=== PATIENT | male | born 1970 | race African-American/Black ===

== ENCOUNTER 2018-12-04 17:52 | Emergency (ER) | payer MEDICAID, OTHER ==
[2018-12-04] MEDS ORDERED: oxyCODONE/Acetamin 5/325 MG* TAB PO ONE (20:24)
--- NOTE | 2018-12-04 20:38 | ED ---
Skin Complaint - HPI Summary HPI Summary: 48-year-old male presents with abscess to his right buttock for the past week. He denies any drainage. He states that he has had this before. Denies any known history of MRSA. He is not diabetic. He is currently homeless. He has not follow-up with his doctor in some time. Denies any fevers or chills. He states that he lymph nodes are swollen his inguinal region. - History of Current Complaint Chief Complaint: EDRashSkinAbscess Time Seen by Provider: 12/04/18 20:17 Stated Complaint: WOUND ON HIP Pain Intensity: 10 - Allergy/Home Medications Allergies/Adverse Reactions: Allergies Allergy/AdvReac Type Severity Reaction Status Date / Time No Known Allergies Allergy Verified 12/04/18 18:04 PMH/Surg Hx/FS Hx/Imm Hx Endocrine/Hematology History: Denies: Hx Anticoagulant Therapy Cardiovascular History: Denies: Hx Myocardial Infarction Infectious Disease History: No Infectious Disease History: Denies: Traveled Outside the [place] in Last 30 Days - Family History Known Family History: Positive: Non-Contributory - Social History Alcohol Use: Weekly Substance Use Type: Reports: None Smoking Status (MU): Never Smoked Tobacco Review of Systems Negative: Fever Negative: Chest Pain Negative: Shortness Of Breath Positive: Rash All Other Systems Reviewed And Are Negative: Yes Physical Exam Triage Information Reviewed: Yes Vital Signs On Initial Exam: Initial Vitals Temp Pulse Resp BP Pulse Ox 99.4 F 93 16 137/89 97 12/04/18 17:58 12/04/18 17:58 12/04/18 17:58 12/04/18 17:58 12/04/18 17:58 Completion Of Physical Exam Limited Due To: Dementia Appearance: Positive: Well-Appearing Skin: Positive: Dry, Other - 5cm by 4cm abscess on right buttock Head/Face: Positive: Normal Head/Face Inspection Eyes: Positive: Normal, Conjunctiva Clear ENT: Positive: Pharynx normal Respiratory/Lung Sounds: Positive: Clear to Auscultation, Breath Sounds Present Cardiovascular: Positive: Normal, RRR Musculoskeletal: Positive: Other - right inguinal lymphadenopathy Neurological: Positive: Normal Psychiatric: Positive: Normal Procedures - Incision and Drainage right buttock Site: right buttock Anesthesia: Topical Instrument(s): Scalpel Packing: Gauze Diagnostics - Vital Signs Vital Signs Temp Pulse Resp BP Pulse Ox 12/04/18 20:28 16 12/04/18 17:58 99.4 F 93 16 137/89 97 - Laboratory Lab Statement: Any lab studies that have been ordered have been reviewed, and results considered in the medical decision making process. Course/Dx - Course Course Of Treatment: 48-year-old male presents with abscess to his right buttock for the past week. He denies any drainage. He states that he has had this before. Denies any known history of MRSA. He is not diabetic. He is currently homeless. He has not follow-up with his doctor in some time. Denies any fevers or chills. He states that he lymph nodes are swollen his inguinal region. On exam has 5cm by 4 cm abscess of right buttocks. Performed I&D got copious amount of discharge. Sent for wound culture but culture swab was so lab threw the culture out after the patient left. Placed patient on Bactrim. Told to return for packing change in 2 days. Told to [facility]up [facility] as does not currently have a doctor. Patient understands agrees with plan. - Differential Diagnoses - Skin Complaint Differential Diagnoses: Abscess, Cellulitis, Contact Dermatitis - Diagnoses Provider Diagnoses: Abscess of right buttock Discharge - Sign-Out/Discharge Documenting (check all that apply): Patient Departure Patient Received Moderate/Deep Sedation with Procedure: No - Discharge Plan Condition: Good Disposition: HOME Prescriptions: Ibuprofen TAB* [Motrin TAB* 800 MG] 800 mg PO Q6H #16 tab Sulfamethox/Trimethoprim DS* [Bactrim DS 800/160 TAB*] 1 tab PO BID #19 tab Patient Education Materials: Abscess (ED) Referrals: [facility] [Outside] Additional Instructions: Take antibiotic twice a day for 10 days, first dose given in ED Apply warm compresses to area Take ibuprofen or Tylenol for pain every 6 hours Follow up with [facility] within 3 days Return to ED if develop fever, area of redness spreads, or any new or worsening symptoms - Billing Disposition and Condition Condition: GOOD Disposition: Home
[2018-12-04] MEDS ORDERED: Sulfamethox/Trimethoprim DS 800/160* TAB PO ONE (20:57)
[2018-12-04] MEDS ORDERED: Ibuprofen TAB* 800 MG PO ONE (20:57)
[2018-12-04 21:13] VITALS: BP 149/91
== END 2018-12-04 21:12 | disposition home or self-care (01) ==
LOC: ED 17:52
DX: L02.31 Cutaneous abscess of buttock (principal)
CPT/HCPCS: 10060; 99283; A9270-GY

== ENCOUNTER → 2019-06-16 | Emergency (ER) | payer MEDICAID, OTHER ==
[~2019-06-16] MED LIST: Tetan/Diph/Pertus SYR(Tdap)* 0.5 ML SYR(BOOSTRIX) use SYR IM ONE
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
[2019-06-16 20:46] VITALS: BP 121/60
== END | disposition home or self-care (01) ==
LOC: ED 18:28
DX: S01.81XA Laceration without foreign body of other part of head, initial encounter (principal); S01.512A Laceration without foreign body of oral cavity, initial encounter; Z72.89 Other problems related to lifestyle; F14.90 Cocaine use, unspecified, uncomplicated; Z23 Encounter for immunization; Y04.2XXA Assault by strike against or bumped into by another person, initial encounter; Y92.9 Unspecified place or not applicable
CPT/HCPCS: 70450; 90471; 90715; 99282

== ENCOUNTER 2022-04-04 10:03 | Observation (INO) ==
[2022-04-04] MEDS ORDERED: NS 0.9% 1000 ml BAG 1,000 ML IV ONE (10:25)
[2022-04-04 10:36] LABS: ABS Eosinophils 0.2 10^3/ul (0-0.6); ABS Lymphocytes 1.6 10^3/ul (1.0-4.8); ABS Monocytes 0.6 10^3/ul (0-0.8); ABS Neutrophils 3.4 10^3/ul (1.5-7.7); Eosinophil % 3.4 %; Hematocrit 42 % (42-52); Hemoglobin 14.2 g/dL (14.0-18.0); Lymphocyte % 27.7 %; Mean Corpuscular HGB Conc 34 g/dL (31-36); Mean Corpuscular Hemoglobin 32 pg (27-31); Mean Corpuscular Volume 95 fL (80-94); Mean Platelet Volume 7.9 fL (7.4-10.4); Nucleated Red Blood Cells % 0.1; Platelet Count 286 10^3/uL (150-450); Red Blood Count 4.46 10^6 /uL (4.18-5.48); Red Cell Distribution Width 14 % (10-15); White Blood Count 5.7 10^3/uL (3.5-10.8)
[2022-04-04] MEDS ORDERED: Iohexol 350 (CONTRAST) 500 ML MDV IV ONE (10:40)
[2022-04-04 10:48] LABS: Activated Partial Thrombo Time 25.6 seconds (26.0-38.0); INR 0.93 (0.86-1.15)
[2022-04-04 11:21] LABS: Albumin 4.4 g/dL (3.2-5.2); Albumin/Globulin Ratio 1.5 (1-3); HDL Cholesterol 105.8 mg/dL; Potassium 3.9 mmol/L (3.5-5.0); Total Bilirubin 0.5 mg/dL (0.2-1.0); Total Protein 7.4 g/dL (6.4-8.9); eGFR CKD-EPI 80.9 (>60)
[2022-04-04 12:02] LABS: High Sensitivity Troponin 1 Hr 14 pg/mL (<20)
[2022-04-04] MEDS ORDERED: Lorazepam PYXIS KEY PRN (12:09)
[2022-04-04] MEDS ORDERED: LORazepam 2 mg VIAL 1 ml IV PUSH ONE (12:09)
[2022-04-04] MEDS ORDERED: Thiamine 100 MG/ML 2 ml VIAL (200 mg) IM ONE (13:31)
[2022-04-04] MEDS ORDERED: Thiamine 100 MG/ML 2 ml VIAL 100 MG, Folic Acid IV 1 MG, Multiple Vitamin IV ADULT 10 M... IV ONE (13:34)
[2022-04-04] MEDS ORDERED: LORazepam 2 mg VIAL 1 ml IV PUSH SCH (14:00)
[2022-04-04] MEDS ORDERED: NS 0.9% 1000 ml BAG 1,000 ML ONE (15:44)
[2022-04-04] MEDS ORDERED: Thiamine 100 MG/ML 2 ml VIAL (200 mg) ONE (15:44)
[2022-04-05] MEDS ORDERED: Multivitamins/Minerals TAB PO SCH (09:00)
[2022-04-05] MEDS ORDERED: Aspirin EC 81 mg TAB.EC (enteric coated) PO SCH (09:00)
[2022-04-05] MEDS ORDERED: Enoxaparin 40 MG/0.4 ML SYR SUBCUT SCH (12:00)
[2022-04-05 17:43] VITALS: BP 140/90
== END 2022-04-05 16:12 | disposition left against medical advice (07) ==
LOC: EDHOLD 10:03 → ED 10:03 → MEDTELE 17:06
PROVIDERS: ADMIT Student in an Organized Health Care Education/Training Program; ATTEND Student in an Organized Health Care Education/Training Program